=== PATIENT | female | born 1945 | race Caucasian/White ===

== ENCOUNTER 2020-03-30 06:45 | Emergency (ER) | payer MEDICARE, SELFPAY ==
[2020-03-30 06:47] VITALS: BP 156/78; PULSE 94; RESP 18; TEMP 36.6; O2SAT 98; BMI 19.5
--- NOTE | 2020-03-30 07:12 | W.ED.BACK ---
HPI - Back Pain/Injury General: Chief Complaint: Back Pain/Injury Stated Complaint: back pain Time Seen by Provider: 03/30/20 07:07 History of Present Illness: HPI Narrative: Patient is a 75-year-old female that comes to the ED with left mid back pain that is radiating up into her left shoulder. Symptoms started yesterday evening. Patient says she was just sitting when she felt the sharp pains in her back. She rates the pain a 10 out of 10. Patient denies any past heart history. She was not able to sleep last night and says she cannot get comfortable whether she is sitting down, laying down or standing. Denies fever, chills, nausea/vomiting, bladder or bowel symptoms. Associated symptoms: Deny abdominal pain, chills, dysuria, fatigue, fever(s), hematuria, nausea or vomiting Review of Systems Const: Denies: fever(s), chills or fatigue Eyes: Denies: change in vision or eye discomfort ENMT: Denies: throat pain, odynophagia, nasal discharge or nasal congestion Card: Denies: chest pain, palpitations, edema, swelling of feet/ankles, dyspnea on exertion or orthopnea Resp: Denies: dyspnea, productive cough or non-productive cough GI: Denies: abdominal pain, nausea, vomiting, diarrhea, constipation or hematochezia : Reports: flank pain (left); Denies: dysuria or hematuria Musc: Reports: back pain (left side mid back--pain radiates into left shoulder.); Denies: neck pain or extremity swelling Skin/Breast: Denies: rash or new lesions Neuro: Denies: headache(s), numbness in extremities or weakness in extremities Physical Exam Narrative: EXAM NARRATIVE: Patient is a pleasant healthy looking 75-year-old female that appears in some pain and is uncomfortable when I entered the room. During history and physical exam she was constantly moving or changing positions to get comfortable Const: COMMON NORMALS: patient oriented x3, healthy appearing and alert GENERAL APPEARANCE: cooperative HENMT: COMMON NORMALS: normocephalic HEAD & SCALP: normocephalic MOUTH: Normal oral and palatal mucosa present THROAT: posterior oropharynx normal and uvula midline Eye: COMMON NORMALS: Equal, round and reactive pupils present PUPIL: Yes Equal, round and reactive pupils present Neck/C-Spine: COMMON NORMALS: supple GENERAL: Yes normal visual inspection Resp: COMMON NORMALS: normal respiratory effort, No retractions, No use of accessory muscles and clear to auscultation bilaterally EFFORT & INSPECTION: Yes able to speak in complete sentences, No tachypneic, No respiratory distress and No labored AUSCULTATION: clear to auscultation bilaterally Cardio: COMMON NORMALS: regular rate, regular rhythm, S1 normal heart sound present, S2 normal heart sound present, No gallops present (Cardio), No clicks present (Cardio), No murmurs present (Cardio) and Peripheral pulses 2+ throughout RATE: regular rate RHYTHM: regular rhythm HEART SOUNDS: S1 normal heart sound present and S2 normal heart sound present PERIPHERAL PULSES: Peripheral pulses 2+ throughout GI: COMMON NORMALS: Normal to inspection, nondistended, normoactive bowel sounds present, Soft to palpation, non-tender and no masses PALPATION: Yes Soft to palpation : BLADDER/KIDNEY EXAM: Yes CVA tenderness on the left (moderate) Back/Pelvis: GENERAL BACK: Yes CVA tenderness THORACIC SPINE/UPPER BACK: Yes paraspinal muscle tenderness Thoracic paraspinal muscle tenderness: left Left thoracic paraspinal muscle tenderness: T5 and T6 Extremity: COMMON NORMALS: normal to inspection Neuro: COMMON NORMALS: patient oriented x3 and moves all extremities SENSORIUM/ORIENTATION: Yes alert Skin: COMMON NORMALS: no rashes or lesions noted GENERAL SKIN EXAM: no rashes or lesions noted and dry skin Course ED course: HEART SCORE- 2 Vital Signs: Vital signs: Vital Signs Temperature 97.9 F 03/30/20 06:47 Pulse Rate 75 03/30/20 10:40 Respiratory Rate 18 03/30/20 10:40 Blood Pressure 153/80 03/30/20 10:40 Pulse Oximetry 97 03/30/20 10:40 MDM - Back Pain/Injury MDM Narrative: Medical decision making narrative: Patient is a 75-year-old female comes to the ED with left side thoracic back pain that was radiated to left shoulder. Physical exam paraspinal muscle tenderness over the left-side of thoracic spine. EKG showed normal sinus rhythm with first-degree AV heart block, no ST segment elevation or depression seen. Troponin negative and HEART score-2. CBC, UA and CMP were unremarkable. CT of the abdomen to rule out kidney stones was performed and showed no acute findings and no obstructive kidney stones seen. Patient was diagnosed with thoracic back pain and given dose of Toradol and Norflex while here in the ED. Patient was discharged with Robaxin and told to follow-up with PCP in 7 to 10 days. Return to ED precautions given. Patient understood and agreed with plan. Lab Data: Attestation: I reviewed the patient's lab results. Labs: Lab Results 03/30/20 03/30/20 03/30/20 Range/Units 07:30 07:44 07:44 WBC 5.7 (4.0-10.0) 10^3/ uL RBC 5.15 (4.1-5.3) 10^6/u L Hgb 14.2 (11.5-15.3) g/dL Hct 45.3 (37.0-47.0) % MCV 88.0 (81-99) fL MCH 27.6 L (28.0-34.0) pg MCHC 31.3 (30.0-36.0) g/dL RDW 14.6 (12.1-15.1) % Plt Count 295 (130-400) 10^3/c mm MPV 9.8 (7.4-10.4) fL Neut % (Auto) 70.8 % Lymph % (Auto) 19.6 % [place] % (Auto) 4.9 % Eos % (Auto) 3.5 % Baso % (Auto) 1.0 % Neut # (Auto) 4.05 (1.8-7.7) 10^3/u L Lymph # (Auto) 1.1 (0.8-4.8) 10^3/u L [place] # (Auto) 0.3 (0.2-0.9) 10^3/u L Eos # (Auto) 0.2 (0.0-0.8) 10^3/u L Baso # (Auto) 0.1 (0.0-0.1) 10^3/u L Nucleated RBC % (a uto) 0 % Nucleated RBCs # 0.0 /100WBC Sodium Cancelled Potassium Cancelled Chloride Cancelled Carbon Dioxide Cancelled Anion Gap Cancelled BUN Cancelled Creatinine Cancelled GFR Calculation Cancelled Glucose Cancelled Calculated Osmolal ity Cancelled Calcium Cancelled Total Bilirubin Cancelled AST Cancelled ALT Cancelled Alkaline Phosphata se Cancelled Troponin T Baselin e NT-Pro-B Natriuret Pep Cancelled Total Protein Cancelled Albumin Cancelled Globulin Cancelled Urine Color Straw (Yellow) Urine Appearance Clear (CLEAR) Urine pH 7 (5-7) Ur Specific Gravit y 1.005 (1.005-1.030) Urine Protein Neg (Negative) Urine Glucose (UA) Norm (Normal) Urine Ketones Negative (Negative) Urine Blood Neg (Negative) Urine Nitrate Negative (Negative) Urine Bilirubin Neg (NEGATIVE) Urine Urobilinogen Norm (Negative) mg/dL Ur Leukocyte Ivelisse ase Negative (Negative) Urine RBC None (0-2) /hpf Urine WBC None (0-5) /hpf Ur Squamous Epith Cells None (0-5) Amorphous Sediment 1+ Urine Bacteria Trace (NONE) Urine Mucus Trace 03/30/20 03/30/20 03/30/20 Range/Units 07:44 08:24 08:24 WBC (4.0-10.0) 10^3/ uL RBC (4.1-5.3) 10^6/u L Hgb (11.5-15.3) g/dL Hct (37.0-47.0) % MCV (81-99) fL MCH (28.0-34.0) pg MCHC (30.0-36.0) g/dL RDW (12.1-15.1) % Plt Count (130-400) 10^3/c mm MPV (7.4-10.4) fL Neut % (Auto) % Lymph % (Auto) % [place] % (Auto) % Eos % (Auto) % Baso % (Auto) % Neut # (Auto) (1.8-7.7) 10^3/u L Lymph # (Auto) (0.8-4.8) 10^3/u L [place] # (Auto) (0.2-0.9) 10^3/u L Eos # (Auto) (0.0-0.8) 10^3/u L Baso # (Auto) (0.0-0.1) 10^3/u L Nucleated RBC % (a uto) % Nucleated RBCs # /100WBC Sodium 137 Potassium 4.2 Chloride 104 Carbon Dioxide 25 Anion Gap 12.2 BUN 13 Creatinine 0.8 GFR Calculation Not Reportable Glucose 114 Calculated Osmolal ity 281 L Calcium 9.5 Total Bilirubin 0.4 AST 26 ALT 15 Alkaline Phosphata se 78 Troponin T Baselin e Cancelled 12 H NT-Pro-B Natriuret Pep 236 Total Protein 7.4 Albumin 4.6 Globulin 2.8 Urine Color (Yellow) Urine Appearance (CLEAR) Urine pH (5-7) Ur Specific Gravit y (1.005-1.030) Urine Protein (Negative) Urine Glucose (UA) (Normal) Urine Ketones (Negative) Urine Blood (Negative) Urine Nitrate (Negative) Urine Bilirubin (NEGATIVE) Urine Urobilinogen (Negative) mg/dL Ur Leukocyte Ivelisse ase (Negative) Urine RBC (0-2) /hpf Urine WBC (0-5) /hpf Ur Squamous Epith Cells (0-5) Amorphous Sediment Urine Bacteria (NONE) Urine Mucus Imaging Data^: CXR: Attestation: I personally reviewed and interpreted this imaging study as follows: Radiologist's impression: [place] [address] XRay Report Signed Patient: Brigette Curry Unit #: [id number] : 1945 Age/Sex: 75 / F ADM Date: 03/30/20 Loc: ER Room/Bed: Attending Dr: Ordering Provider/Ordering MD: Victor Hugo Platt Date of Service: 03/30/20 Procedure(s): XR chest 1V portable [id number] Accession Number(s): [id number] Report Number: [id number] PROCEDURE INFORMATION: Exam: XR Chest, 1 View Exam date and time: 03/30/2020 8:19 AM Age: 75 years old Clinical indication: Back pain radiating into left shoulder TECHNIQUE: Imaging protocol: XR of the chest Views: 1 view. COMPARISON: CR Chest 2 views* [id number] 05/19/2018 7:35 PM FINDINGS: Lungs: The lungs are hyperinflated and hyperlucent compatible with COPD. No pneumonia or pulmonary edema. Pleural space: No pleural effusion or pneumothorax. Heart/Mediastinum: The cardiac silhouette is not enlarged. The mediastinal contours are normal. Bones/joints: No acute osseous abnormality. XR/XR chest 1V portable [id number] IMPRESSION: COPD. Dictated By: Favian Perry Signed By: Favian Perry Signed Date/Time: 03/30/20857 DD/ 6 CT Abd/Pel: Attestation: I personally reviewed and interpreted this imaging study as follows: Radiologist's impression: [facility] [address] [place] [address] CT Scan Report Signed Patient: Brigette Curry Unit #: [id number] : 1945 Age/Sex: 75 / F ADM Date: 03/30/20 Loc: ER Room/Bed: Attending Dr: Ordering Provider/Ordering MD: Victor Hugo Platt Date of Service: 03/30/20 Procedure(s): CT kidney stone [id number] Accession Number(s): [id number] Report Number: [id number] WS: [id number] CT ABDOMEN PELVIS TECHNIQUE: Noncontrast CT of the abdomen and pelvis with coronal and sagittal reformatted images. CLINICAL INFORMATION: Left flank pain and Left CVA tenderness COMPARISON: None. DLP: 509.[address] scans at [facility] use at least one of these dose optimization techniques: automated exposure control; mA and/or kV adjustment per patient size (includes targeted exams where dose is matched to clinical indication); or iterative reconstruction. FINDINGS: No left hydronephrosis. No obstructing left renal parenchymal or ureteral calculi. No obstructing right renal parenchymal or ureteral calculi. Pelvic phleboliths. Noncontrast liver is normal. Noncontrast spleen is normal. Lung bases are well aerated. Left adrenal adenoma measuring 1.8 cm. Right adrenal Gland is normal. Fatty atrophy of the pancreas. Normal caliber abdominal aorta. Tiny amount of free fluid in the pelvis. Sigmoid diverticulosis. No evidence of acute diverticulitis. No periaortic or inguinal lymphadenopathy. Normal lumbar spine. CT/CT kidney stone [id number] IMPRESSION: 1. No obstructing renal or ureteral calculi. No hydronephrosis. 2. 1.8 cm left adrenal adenoma. 3. Tiny amount of free fluid in the pelvis. 4. Sigmoid diverticulosis. No acute diverticulitis Dictated By: Erich Banegas MD Signed By: Erich Banegas MD Signed Date/Time: 03/30/20900 DD/ 0854 EKG Data^: EKG 1: Attestation: I personally reviewed and interpreted this EKG as follows: EKG interpretation date: 03/30/20 Interpretation: Sinus rhythm with first-degree AV heart block, 77 bpm, no ST segment elevation or depression seen. Discharge Plan Discharge Patient Disposition: Home Clinical Impression: Thoracic back pain Qualifiers: Chronicity: acute Back pain laterality: left Qualified Code(s): M54.6 - Pain in thoracic spine Condition: Stable Prescriptions: New Robaxin-750 750 mg tablet 750 mg PO Q8H Qty: 15 RF: 0 No Action multivitamin Tablet 1 tab PO DAILY RF: 0 aspirin 81 mg Tablet,Chewable 81 mg PO DAILY RF: 0 Discharge Orders: Discharge Order (Routine); Ordered 03/30/20 Ordered By: Victor Hugo Platt Referrals: Rory Marinelli DO [Primary Care Provider] - Discharge Diet: Regular Discharge Activity: Increase activity as tolerated Patient Instructions: Back Pain (ED) Activity Restrictions/Additional Instructions: Follow-up with medical provider as directed in 7-19 days. Take medications as prescribed. I am sending you home with a prescription for Robaxin which is a muscle relaxer. Please take dose at night before bed because it can cause some drowsiness. If you decide to take it during the day use with caution due to possible drowsy side effect. Take [id number] ibuprofen or Tylenol to help with pain. Apply cold pack and/or heat on back to help with symptoms as well. Return to the ER or your medical provider if condition worsens. Please read and understand discharge instructions. If any questions, please ask. Discharge Date/Time: 03/30/20 10:40 Coding Level of Care Code ED Options Trader for Chg Fwd Exam Comprehensive
--- NOTE | 2020-03-30 07:20 | ECG_ITS ---
[facility] Test Date: 2020-03-30 Pat Name: Brigette Curry Department: Room: Gender: Female [employer]: : 1945 Requested By: Victor Hugo Platt Order Number: [id number] Sen MD: Mackenzie Butterfield M.D. Measurements Intervals [place] Rate: 77 P: 82 ND: 221 QRS: -14 QRSD: 89 T: 63 QT: 366 QTc: 414 Interpretive Statements SINUS RHYTHM WITH FIRST DEGREE AV BLOCK POSSIBLE RIGHT ATRIAL ENLARGEMENT [0.25mV P WAVE] LEFT ATRIAL ENLARGEMENT [-0.15mV P WAVE IN V1/V2] POSSIBLE RIGHT VENTRICULAR CONDUCTION DELAY [RSR (QR) IN V1/V2] POSSIBLE LEFT VENTRICULAR HYPERTROPHY [VOLTAGE CRITERIA PLUS LAE OR QRS WIDENING] Compared to ECG 05/19/2018 19:24:17 No significant changes Electronically Signed On 03-30-2020 15:46:57 CDT by Mackenzie Butterfield M.D. [email or web address]
--- NOTE | 2020-03-30 07:24 | XRR_ITS ---
PROCEDURE INFORMATION: Exam: XR Chest, 1 View Exam date and time: 03/30/2020 8:19 AM Age: 75 years old Clinical indication: Back pain radiating into left shoulder TECHNIQUE: Imaging protocol: XR of the chest Views: 1 view. COMPARISON: CR Chest 2 views* [id number] 05/19/2018 7:35 PM FINDINGS: Lungs: The lungs are hyperinflated and hyperlucent compatible with COPD. No pneumonia or pulmonary edema. Pleural space: No pleural effusion or pneumothorax. Heart/Mediastinum: The cardiac silhouette is not enlarged. The mediastinal contours are normal. Bones/joints: No acute osseous abnormality. XR/XR chest 1V portable [id number] IMPRESSION: COPD.
[2020-03-30 07:48] VITALS: RESP 14; O2SAT 94
[2020-03-30] MEDS: ondansetron 2 mg/ML SDV 2 mL 4 MG IVP (07:48)
[2020-03-30] MEDS: morphine 4 mg/mL SDV 1 mL IVP (07:48)
[2020-03-30 07:53] VITALS: BP 113/60; PULSE 102; RESP 18; O2SAT 97
[2020-03-30 07:56] LABS: Basophils # 0.1 10^3/uL (0.0-0.1); Eosinophils # 0.2 10^3/uL (0.0-0.8); Eosinophils % 3.5 %; Hematocrit 45.3 % (37.0-47.0); Hemoglobin 14.2 g/dL (11.5-15.3); Lymphocytes # 1.1 10^3/uL (0.8-4.8); Lymphocytes % 19.6 %; Mean Corpuscular HGB Conc 31.3 g/dL (30.0-36.0); Mean Corpuscular Hemoglobin 27.6 pg (28.0-34.0); Mean Platelet Volume 9.8 fL (7.4-10.4); Monocytes # 0.3 10^3/uL (0.2-0.9); Monocytes % 4.9 %; Neutrophils # 4.05 10^3/uL (1.8-7.7); Neutrophils % 70.8 %; Nucleated Red Blood Cells % 0 %; Platelet Count 295 10^3/cmm (130-400); Red Blood Count 5.15 10^6/uL (4.1-5.3); Red Cell Distribution Width 14.6 % (12.1-15.1); White Blood Count 5.7 10^3/uL (4.0-10.0)
[2020-03-30 08:00] VITALS: BP 154/76; PULSE 73; RESP 13; O2SAT 98
--- NOTE | 2020-03-30 08:17 | CT_ITS ---
WS: [id number] CT ABDOMEN PELVIS TECHNIQUE: Noncontrast CT of the abdomen and pelvis with coronal and sagittal reformatted images. CLINICAL INFORMATION: Left flank pain and Left CVA tenderness COMPARISON: None. DLP: 509.[address] scans at [facility] use at least one of these dose optimization techniques: automat ed exposure control; mA and/or kV adjustment per patient size (includes targeted exams where dose is matched to clinical indication); or iterative reconstruction. FINDINGS: No left hydronephrosis. No obstructing left renal parenchymal or ureteral calculi. No obstructing rig ht renal parenchymal or ureteral calculi. Pelvic phleboliths. Noncontrast liver is normal. Noncontrast spleen is normal. Lung bases are well aerated. Left adrenal adenoma measuring 1.8 cm. Right adrenal Gland is normal. Fatty atrophy of the pancreas. Normal calibe r abdominal aorta. Tiny amount of free fluid in the pelvis. Sigmoid diverticulosis. No evidence of acute diverticulitis. No periaortic or inguinal lymphadenopathy. Normal lumbar spine. CT/CT kidney stone [id number] IMPRESSION: 1. No obstructing renal or ureteral calculi. No hydronephrosis. 2. 1.8 cm left adrenal adenoma. 3. Tiny amount of free fluid in the pelvis. 4. Sigmoid diverticulosis. No acute diverticulitis
[2020-03-30 08:20] LABS: Add Urine Culture? No; Amorphous Sediment Urine 1+; Bacteria Urine TRACE; Bilirubin Urine Neg (NEGATIVE); Blood Urine Neg (Negative); Glucose Urine UA Norm (Normal); Ketones Urine Negative (Negative); Leukocyte Esterase Urine Negative (Negative); Mucus Urine TRACE; Nitrate Urine Negative (Negative); Protein Urine Neg (Negative); Specific Gravity, Urine 1.005 (1.005-1.030); Urine Appearance Clear (CLEAR); Urine Color Straw (Yellow); Urobilinogen Urine Norm (Negative); pH Urine 7 (5-7)
[2020-03-30] MEDS: sodium chloride 0.9% 500 ML IV (08:20)
[2020-03-30 08:49] LABS: Troponin(5th) Baseline 12 ng/L (0-10)
--- NOTE | 2020-03-30 08:52 | PC.NURSE ---
This RN reviewed assessment and agree with the chart.
[2020-03-30 08:57] LABS: Alanine Aminotransferase 15 U/L (0-33); Albumin Level 4.6 g/dL (3.5-5.2); Alkaline Phosphatase 78 IU/L (35-105); Anion Gap 12.2 (5-19); Aspartate Amino Transferase 26 U/L (0-32); Blood Urea Nitrogen 13 mg/dL (8-23); Calcium 9.5 mg/dL (8.5-10.5); Carbon Dioxide 25 mmol/L (22-29); Chloride 104 mmol/L (98-107); Globulin 2.8 g/dL (1.3-4.6); Glucose 114 mg/dL (65-115); NT Pro B Type Natriuretic Pept 236 pg/mL (0-450); Osmolality Calculated 281 mOsm/kg (285-295); Potassium 4.2 mmol/L (3.5-5.1); Sodium 137 mmol/L (136-145); Total Bilirubin 0.4 mg/dL (0.15-1.2); Total Protein 7.4 g/dL (6.6-8.7)
[2020-03-30 09:00] VITALS: BP 135/76; PULSE 71; RESP 15; O2SAT 98
[2020-03-30] MEDS: orphenadrine 30 mg/mL Inj 2 mL 60 MG IVP (09:42)
[2020-03-30] MEDS: ketorolac 30 mg/mL INJ IVP (09:42)
[2020-03-30] MEDS: diphenhydrAMINE 50 mg/mL SDV 1mL IVP (09:59)
[2020-03-30 10:40] VITALS: BP 153/80; PULSE 75; RESP 18; O2SAT 97
== END 2020-03-30 10:40 | disposition home or self-care (01) ==
PROVIDERS: Emergency Provider Physician Assistant; PCP Internal Medicine
DX: M54.6 Pain in thoracic spine (principal); Z79.82 Long term (current) use of aspirin
CPT/HCPCS: 12345; 36415; 71045; 74176; 80053; 81001; 83880; 84484; 85025; 87040; 93005; 96361; 96374; 96375; 99284; J1200; J1885; J2270; J2360; J2405; J7040

== ENCOUNTER 2024-05-05 11:45 | Emergency (ER) | payer MEDICARE, SELFPAY ==
[2024-05-05 11:53] VITALS: BP 161/79; PULSE 91; RESP 16; TEMP 36.4; O2SAT 97; BMI 17.9
--- NOTE | 2024-05-05 13:35 | XRR_ITS ---
PROCEDURE INFORMATION: Exam: XR Thoracic Spine Exam date and time: 05/05/2024 1:57 PM Age: 79 years old Clinical indication: Pain in thoracic spine; Additional info: Back pain TECHNIQUE: Imaging protocol: Radiologic exam of the thoracic spine. Views: 3 views. COMPARISON: CR XR thoracic spine 3V* [id number] 04/14/2020 10:09 AM FINDINGS: Bones/joints: Alignment within normal limits. Minimal degenerative changes of the spine. No fracture evident. Soft tissues: Unremarkable. XR/XR thoracic spine 3V* [id number] IMPRESSION: Minimal degenerative change with no acute pathology.
--- NOTE | 2024-05-05 13:36 | XRR_ITS ---
PROCEDURE INFORMATION: Exam: XR Lumbosacral Spine Exam date and time: 05/05/2024 2:01 PM Age: 79 years old Clinical indication: Low back pain TECHNIQUE: Imaging protocol: Radiologic exam of the lumbosacral spine. Views: 2 or 3 views. COMPARISON: CT kidney stone [id number] 03/30/2020 8:25 AM FINDINGS: Bones/joints: Minimal levocurvature. Osteopenia. Minimal anterolisthesis of L4 on L5. Features of minimal degenerative disc disease. Mild degenerative changes lower lumbar spine facet joints. Soft tissues: Vascular calcifications noted in the soft tissues. Gastrointestinal tract: Large amount of colonic stool. XR/XR lumbar spine 2-3V* [id number] IMPRESSION: No acute pathology. Mild levocurvature and minimal degenerative change.
[2024-05-05] MEDS: ketorolac 30 mg/mL INJ 15 MG IM (13:44)
[2024-05-05] MEDS: orphenadrine 30 mg/mL Inj 2 mL IM (13:45)
--- NOTE | 2024-05-05 13:51 | W.ED.BACK ---
HPI - Back Pain/Injury General: Chief Complaint: Back Pain/Injury Stated Complaint: severe upper back pain Time Seen by Provider: 05/05/24 13:21 History of Present Illness: 79-year-old female comes in today with increased back pain and discomfort. Patient reports that she has chronic back pain that she takes tramadol for. Patient reports that she has had prior complaints of pain in the past but has had worsening symptoms over the last 3 days. Patient has taken her tramadol with no relief. Patient appears nontoxic. Related Data Home Medications Medication Instructions Recorded Confirmed aspirin 81 mg chewable tablet 81 mg PO DAILY 03/30/20 03/30/20 multivitamin 1 tab PO DAILY 03/30/20 03/30/20 Previous Rx's Medication Instructions Recorded baclofen 5 mg tablet 5 mg PO TID PRN muscle spasm #20 05/05/24 tabs celecoxib 100 mg capsule 100 mg PO BID #20 caps 05/05/24 Allergies Allergy/AdvReac Type Severity Reaction Status Date / Time No Known Allergies Allergy Verified 03/30/20 06:54 Review of Systems Musc: Reports: back pain Physical Exam Const: COMMON NORMALS: alert HENMT: COMMON NORMALS: normocephalic HEAD & SCALP: normocephalic MOUTH: Normal oral and palatal mucosa present Neck/C-Spine: COMMON NORMALS: full ROM Resp: COMMON NORMALS: normal respiratory effort Cardio: COMMON NORMALS: regular rate RATE: regular rate GI: COMMON NORMALS: non-tender : COMMON NORMALS: Yes no CVA tenderness BLADDER/KIDNEY EXAM: Yes no CVA tenderness Back/Pelvis: COMMON NORMALS: no CVA tenderness THORACIC SPINE/UPPER BACK: No thoracic spinal tenderness and Yes paraspinal muscle tenderness Thoracic paraspinal muscle tenderness: left LUMBAR SPINE/LOWER BACK: No lumbar spinal tenderness and Yes paraspinal muscle tenderness Lumbar paraspinal muscle tenderness: left Extremity: COMMON NORMALS: normal to inspection Neuro: SENSORIUM/ORIENTATION: Yes alert Skin: COMMON NORMALS: turgor normal GENERAL SKIN EXAM: turgor normal Course Vital Signs: Vital signs: Vital Signs Temperature 97.6 F 05/05/24 11:53 Pulse Rate 91 05/05/24 11:53 Respiratory Rate 16 05/05/24 11:53 Blood Pressure 161/79 05/05/24 11:53 Pulse Oximetry 97 05/05/24 11:53 Oxygen Delivery Me thod Room Air 05/05/24 11:53 MDM - Back Pain/Injury Medical Decision Making 79-year-old female comes in today for complaints of left upper back pain. Patient reports a previous history of similar back pain and discomfort. Patient was concerned that she may be having a stroke. Patient denies any difficulty walking or any weakness in the extremity. Patient denies any problems speaking or complaints of a headache or dizziness. No focal neurodeficits are noted. Vital signs are normal except for some mild elevation of blood pressure. Patient has some tenderness of the left paraspinous muscles and infrascapular area of the mid to upper back. Lungs are clear to auscultation. Differential diagnosis includes but not limited to ACS, gallbladder disease, pancreatitis, anxiety about health, intervertebral disc disease, facet arthropathy, muscle strain. EKG was unremarkable. CBC was normal. Urinalysis was unremarkable. CMP was unremarkable. Troponin was 14. Most likely pain is related to patient's chronic facet arthritis in the back. X-rays of the thoracic and lumbar spine noted no acute abnormalities and only degenerative changes. Patient and family both reported understanding of care plan need for follow-up or return to the ER. Labs 05/05/24 14:23 05/05/24 14:23 Radiology Impressions Thoracic Spine X-Ray 05/05/24 13:35 IMPRESSION: Minimal degenerative change with no acute pathology. Lumbar Spine X-Ray 05/05/24 13:36 IMPRESSION: No acute pathology. Mild levocurvature and minimal degenerative change. Laboratory Results WBC 6.44 10^3/uL (3.29-11.43) 05/05/24 14: RBC 4.92 10^6/uL (3.85-5.65) 05/05/24 14:23 Hgb 13.90 g/dL (11.27-16.99) 05/05/24 14:23 Hct 44.8 % (36-47) 05/05/24 14:23 MCV 91.1 fl (85-98) 05/05/24 14:23 MCH 28.3 pg (27-33) 05/05/24 14: MCHC 31.0 g/dL (30-55) 05/05/24 14:23 RDW 14.6 % (12.1-15.1) 05/05/24 14:23 Plt Count 246 10^3/cmm (157-399) 05/05/24 14:23 MPV 9.0 fL (7.4-10.4) 05/05/24 14:23 Neut % (Auto) 75.8 % 05/05/24 14:23 Lymph % (Auto) 16.1 % 05/05/24 14:23 [place] % (Auto) 6.2 % 05/05/24 14:23 Eos % (Auto) 1.1 % 05/05/24 14:23 Baso % (Auto) 0.6 % 05/05/24 14:23 Neut # (Auto) 4.88 10^3/uL (1.8-7.7) 05/05/24 14:23 Lymph # (Auto) 1.0 10^3/uL (0.8-4.8) 05/05/24 14:23 Valencia # (Auto) 0.4 10^3/uL (0.2-0.9) 05/05/24 14:23 Eos # (Auto) 0.1 10^3/uL (0.0-0.8) 05/05/24 14:23 Baso # (Auto) 0.0 10^3/uL (0.0-0.1) 05/05/24 14:23 Nucleated RBC % (auto) 0 % 05/05/24 14: Nucleated RBCs # 0.0 /100WBC 05/05/24 14:23 Sodium 139 mmol/L (136-145) 05/05/24 14:23 Potassium 3.8 mmol/L (3.5-5.1) 05/05/24 14:23 Chloride 101 mmol/L (98-107) 05/05/24 14:23 Carbon Dioxide 25 mmol/L (22-29) 05/05/24 14:23 Anion Gap 16.8 (5-19) 05/05/24 14:23 BUN 9 mg/dL (8-23) 05/05/24 14:23 Creatinine 0.7 mg/dL (0.5-0.9) 05/05/24 14:23 GFR Calculation Not Reportable 05/05/24 14:23 Glucose 102 mg/dL (65-115) 05/05/24 14:23 Calculated Osmolality 287 mOsm/kg (285-295) 05/05/24 14:23 Calcium 9.2 mg/dL (8.5-10.5) 05/05/24 14:23 Total Bilirubin 0.5 mg/dL (0.15-1.2) 05/05/24 14:23 AST 27 U/L (0-32) 05/05/24 14:23 ALT 19 U/L (0-33) 05/05/24 14:23 Alkaline Phosphatase 90 U/L (35-105) 05/05/24 14:23 Troponin T Baseline 14 ng/L (0-10) H 05/05/24 14:23 Total Protein 8.0 g/dL (6.6-8.7) 05/05/24 14:23 Albumin 4.7 g/dL (3.5-5.2) 05/05/24 14:23 Globulin 3.3 g/dL (1.3-4.6) 05/05/24 14:23 Lipase 16 U/L (13-60) 05/05/24 14:23 Urine Color Yellow (Yellow) 05/05/24 14:07 Urine Appearance Clear (CLEAR) 05/05/24 14:07 Urine pH 7 (5-7) 05/05/24 14:07 Ur Specific [place] 1.010 (1.005-1.030) 05/05/24 14:07 Urine Protein Neg (Negative) 05/05/24 14:07 Urine Glucose (UA) Norm (Normal) 05/05/24 14:07 Urine Ketones Negative (Negative) 05/05/24 14:07 Urine Blood 2+ (Negative) H 05/05/24 14:07 Urine Nitrate Negative (Negative) 05/05/24 14:07 Urine Bilirubin Neg (Negative) 05/05/24 14:07 Urine Urobilinogen Norm mg/dL (Negative) 05/05/24 14:07 Ur Leukocyte Esterase Negative (Negative) 05/05/24 14:07 Urine RBC 5-10 /hpf (0-2) H 05/05/24 14:07 Urine WBC None /hpf (0-5) 05/05/24 14:07 Ur Squamous Epith Cells None /hpf (0-5) 05/05/24 14:07 Amorphous Sediment Not Reportable 05/05/24 14:07 Urine Bacteria None /hpf (NONE) 05/05/24 14:07 All radiology interpretation(s) finalized by discharge EKG Data EKG 1: I personally reviewed and interpreted this EKG as follows: EKG interpretation date: 05/05/24 EKG interpretation time: 14:35 Prior EKG tracings: not available for review Interpretation: EKG shows a sinus rhythm with a regular rate at [address] elevation or ectopy is noted. No prior exam was available for comparison. Patient has some mild artifact on the EKG. Dr. Matamoros reviewed the EKG prior to my visualization. Computer generated interpretation: Sinus rhythm with first-degree AV block. Right atrial enlargement. Possible right ventricular conduction delay. Abnormal EKG. Unconfirmed report. 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 [Family Provider] - Rory Marinelli DO [Primary Care Provider] - Discharge Diet: Usual diet Discharge Activity: Increase activity as tolerated Patient Instructions: Back Pain (ED) Activity Restrictions/Additional Instructions: Activity as tolerated. Gentle stretching and range of motion exercises. Drink plenty of water with medications. Follow-up with primary care for further instructions. Return to ED for new concerns. Coding Level of Care Code ED Assembler Finger Buffs for Chg Caren
--- NOTE | 2024-05-05 13:52 | ECG_ITS ---
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 Measurements Intervals [place] Rate: 83 P: 88 GA: 221 QRS: 17 QRSD: 92 T: 80 QT: 364 QTc: 429 Interpretive Statements SINUS RHYTHM WITH FIRST DEGREE AV BLOCK RIGHT ATRIAL ENLARGEMENT [0.3mV P-WAVE] POSSIBLE RIGHT VENTRICULAR CONDUCTION DELAY [RSR (QR) IN V1/V2] Compared to ECG 03/30/2020 07:37:02 No significant changes Electronically Signed On 05-05-2024 17:43:43 CDT by Sohan Rush M.D. [id number]
[2024-05-05 14:27] LABS: Add Urine Culture? No; Add Urine Microscopic? YES; Bilirubin Urine Neg (Negative); Blood Urine 2+ (Negative); Glucose Urine UA Norm (Normal); Ketones Urine Negative (Negative); Leukocyte Esterase Urine Negative (Negative); Nitrate Urine Negative (Negative); Protein Urine Neg (Negative); Urine Appearance Clear (CLEAR); Urine Color Yellow (Yellow); Urobilinogen Urine Norm (Negative); pH Urine 7 (5-7)
[2024-05-05 14:31] LABS: Basophils % 0.6 %; Eosinophils # 0.1 10^3/uL (0.0-0.8); Eosinophils % 1.1 %; Hematocrit 44.8 % (36-47); Lymphocytes % 16.1 %; Mean Corpuscular Hemoglobin 28.3 pg (27-33); Mean Corpuscular Volume 91.1 fl (85-98); Monocytes # 0.4 10^3/uL (0.2-0.9); Monocytes % 6.2 %; Neutrophils # 4.88 10^3/uL (1.8-7.7); Neutrophils % 75.8 %; Nucleated Red Blood Cells % 0 %; Platelet Count 246 10^3/cmm (157-399); Red Blood Count 4.92 10^6/uL (3.85-5.65); Red Cell Distribution Width 14.6 % (12.1-15.1); White Blood Count 6.44 10^3/uL (3.29-11.43)
[2024-05-05 14:55] LABS: Alanine Aminotransferase 19 U/L (0-33); Albumin Level 4.7 g/dL (3.5-5.2); Alkaline Phosphatase 90 U/L (35-105); Anion Gap 16.8 (5-19); Aspartate Amino Transferase 27 U/L (0-32); Blood Urea Nitrogen 9 mg/dL (8-23); Calcium 9.2 mg/dL (8.5-10.5); Carbon Dioxide 25 mmol/L (22-29); Chloride 101 mmol/L (98-107); Creatinine Clr Calc Pharmacy 43.3286; Globulin 3.3 g/dL (1.3-4.6); Glucose 102 mg/dL (65-115); Lipase 16 U/L (13-60); Osmolality Calculated 287 mOsm/kg (285-295); Potassium 3.8 mmol/L (3.5-5.1); Sodium 139 mmol/L (136-145); Total Bilirubin 0.5 mg/dL (0.15-1.2); Troponin(5th) Baseline 14 ng/L (0-10)
[2024-05-05 15:50] VITALS: BP 154/76; PULSE 84; RESP 16; O2SAT 97
== END 2024-05-05 15:47 | disposition home or self-care (01) ==
PROVIDERS: Emergency Provider Nurse Practitioner Family; PCP Internal Medicine
DX: M47.814 Spondylosis without myelopathy or radiculopathy, thoracic region (principal); I44.0 Atrioventricular block, first degree; Z79.82 Long term (current) use of aspirin
CPT/HCPCS: 36415; 72072; 72100; 80053; 81001; 83690; 84484; 85025; 93005; 96372; 99285; J1885; J2360

== ENCOUNTER 2024-12-15 17:01 | Emergency (ER) | payer MEDICARE, SELFPAY ==
[2024-12-15] VITALS (17 sets, daily range): BP systolic 143–222; BP diastolic 74–112; PULSE 68–84; RESP 13–27; TEMP 36.1; O2SAT 96–99; BMI 19.5
--- NOTE | 2024-12-15 17:08 | XRR_ITS ---
PROCEDURE INFORMATION: Exam: XR Chest Exam date and time: 12/15/2024 5:12 PM Age: 79 years old Clinical indication: Injury or trauma; Fall; Blunt trauma (contusions or hematomas) TECHNIQUE: Imaging protocol: Radiologic exam of the chest. Views: 1 view. COMPARISON: CR XR chest 1V portable [id number] 03/30/2020 8:09 AM FINDINGS: Lungs: Biapical scarring. No consolidation. Pleural spaces: Unremarkable. No pleural effusion. No pneumothorax. Heart/Mediastinum: Unremarkable. No cardiomegaly. Bones/joints: Unremarkable. XR/XR chest 1V portable [id number] IMPRESSION: No acute findings.
--- NOTE | 2024-12-15 17:08 | CTR_ITS ---
PROCEDURE INFORMATION: Exam: CT Head Without Contrast Exam date and time: 12/15/2024 5:17 PM Age: 79 years old Clinical indication: Injury or trauma; Blunt trauma (contusions or hematomas); Injury details: Patient presents with injury after fall. Patient complaining of right rib pain and head pain. Patient fell down stairs. Patient denies blood thinner use. Patient is unsure if she had positive loc. Patent airway, unlabored respirations, and appropriate color. TECHNIQUE: Imaging protocol: Computed tomography of the head without contrast. Radiation optimization: All CT scans at this facility use at least one of these dose optimization techniques: automated exposure control; mA and/or kV adjustment per patient size (includes targeted exams where dose is matched to clinical indication); or iterative reconstruction. COMPARISON: CT cervical spin wo con* [id number] 12/15/2024 5:17 PM RADIATION DOSE METRICS: Total DLP (mGy-cm): 1069.3 FINDINGS: Brain: No hemorrhage. No edema. Moderate diffuse cerebral atrophy and sequela of chronic small vessel ischemic disease. No mass effect. Cerebral ventricles: No ventriculomegaly. Paranasal sinuses: Visualized sinuses are unremarkable. No fluid levels. Mastoid air cells: Visualized mastoid air cells are well aerated. Bones: Unremarkable. No acute fracture. Soft tissues: Right posterior scalp contusion. CT/CT head wo con* [id number] IMPRESSION: No acute intracranial abnormality.
--- NOTE | 2024-12-15 17:08 | CTR_ITS ---
PROCEDURE INFORMATION: Exam: CT Chest With Contrast; Diagnostic Exam date and time: 12/15/2024 5:26 PM Age: 79 years old Clinical indication: Injury or trauma; Generalized; Blunt trauma (contusions or hematomas); Fall walkiing down garage steps. Focal C/O RT rib pain. TECHNIQUE: Imaging protocol: Diagnostic computed tomography of the chest with contrast. Radiation optimization: All CT scans at this facility use at least one of these dose optimization techniques: automated exposure control; mA and/or kV adjustment per patient size (includes targeted exams where dose is matched to clinical indication); or iterative reconstruction. Contrast material: OMNI 350; Contrast volume: 100 ml; Contrast route: INTRAVENOUS (IV); COMPARISON: CR (CHEST, ) 12/15/2024 5:12 PM RADIATION DOSE METRICS: Total DLP (mGy-cm): 570.27 FINDINGS: Lungs: Biapical scarring. No consolidation. No masses. Pleural spaces: Unremarkable. No pneumothorax. No pleural effusion. Heart: Unremarkable. No cardiomegaly. No pericardial effusion. Lymph nodes: Unremarkable. No enlarged lymph nodes. Vasculature: Unremarkable. No aortic aneurysm. Bones/joints: Unremarkable. No acute fracture. Soft tissues: Unremarkable. PROCEDURE INFORMATION: Exam: CT Abdomen And Pelvis With Contrast Exam date and time: 12/15/2024 5:26 PM Age: 79 years old Clinical indication: Injury or trauma; Generalized; Blunt trauma (contusions or hematomas); Fall walkiing down garage steps. Focal C/O RT rib pain. TECHNIQUE: Imaging protocol: Computed tomography of the abdomen and pelvis with contrast. Radiation optimization: All CT scans at this facility use at least one of these dose optimization techniques: automated exposure control; mA and/or kV adjustment per patient size (includes targeted exams where dose is matched to clinical indication); or iterative reconstruction. Contrast material: OMNI 350; Contrast volume: 100 ml; Contrast route: INTRAVENOUS (IV); COMPARISON: CT kidney stone [id number] 03/30/2020 8:25 AM RADIATION DOSE METRICS: Total DLP (mGy-cm): 570.27 FINDINGS: Liver: Normal. No mass. Gallbladder and biliary ducts: Normal. No calcified stones. No ductal dilation. Pancreas: Normal. No ductal dilation. Spleen: Normal. No splenomegaly. Adrenal glands: Normal. No mass. Kidneys and ureters: Normal. No hydronephrosis. Stomach and bowel: Unremarkable. No obstruction. No mucosal thickening. Appendix: No evidence of appendicitis. Intraperitoneal space: Unremarkable. No free air. No significant fluid collection. Vasculature: Unremarkable. No abdominal aortic aneurysm. Lymph nodes: Unremarkable. No enlarged lymph nodes. Urinary bladder: Unremarkable as visualized. Reproductive: Unremarkable as visualized. Bones/joints: No acute fracture. Soft tissues: Unremarkable. CT/CT chest abdpel w/*[id number] IMPRESSION: No acute traumatic intrathoracic findings. IMPRESSION: No acute traumatic intra-abdominal findings.
--- NOTE | 2024-12-15 17:08 | CTR_ITS ---
PROCEDURE INFORMATION: Exam: CT Cervical Spine Without Contrast Exam date and time: 12/15/2024 5:17 PM Age: 79 years old Clinical indication: Injury or trauma; Fall; Blunt trauma; Patient fell walking down garage steps. C/O neck pain. TECHNIQUE: Imaging protocol: Computed tomography of the cervical spine without contrast. Radiation optimization: All CT scans at this facility use at least one of these dose optimization techniques: automated exposure control; mA and/or kV adjustment per patient size (includes targeted exams where dose is matched to clinical indication); or iterative reconstruction. COMPARISON: CR (CHEST, ) 12/15/2024 5:12 PM RADIATION DOSE METRICS: Total DLP (mGy-cm): 148.6 FINDINGS: Bones: No acute fracture. Normal alignment. No significant disc bulge or herniation. No severe spinal canal stenosis. No significant neural foraminal narrowing. Lungs: Biapical scarring. Soft tissues: Unremarkable. CT/CT cervical spin wo con* [id number] IMPRESSION: No acute findings.
--- NOTE | 2024-12-15 17:09 | W.ED.FALL ---
Documented by User: Sadi Ibrahim MD 12/15/24 17:11 HPI - Fall General: Chief Complaint: Fall Stated Complaint: head pain s/p fall Time Seen by Provider: 12/15/24 17:05 Source: patient and EMS Mode of arrival: EMS Limitations: no limitations History of Present Illness: 79-year-old female states that she fell down her steps in her garage. She states that she did strike her head is having head pain also neck pain and right sided chest pain and slight abdominal pain. States her pains are worse in her right ribs rates that pain an 8 out of 10 no LOC has a extremely small laceration to right parietal Associated symptoms-after fall: Reports abdominal pain, chest pain and neck pain; Denies headache(s) Related Data Home Medications ?Medication ?Instructions ?Recorded ?Confirmed aspirin 81 mg chewable tablet 81 mg PO DAILY 03/30/20 03/30/20 multivitamin 1 tab PO DAILY 03/30/20 03/30/20 Previous Rx's ?Medication ?Instructions ?Recorded baclofen 5 mg tablet 5 mg PO TID PRN muscle spasm #20 05/05/24 tabs celecoxib 100 mg capsule 100 mg PO BID #20 caps 05/05/24 hydrocodone 5 mg-acetaminophen 325 1 tab PO Q8H PRN pain #7 tabs 12/15/24 mg tablet Allergies Allergy/AdvReac Type Severity Reaction Status Date / Time No Known Allergies Allergy Verified 03/30/20 06:54 Review of Systems Const: Denies: fever(s), chills, body aches or change in appetite Eyes: Denies: blurry vision or eye discomfort ENMT: Denies: throat pain or dental pain Card: Reports: chest pain Resp: Denies: dyspnea GI: Reports: abdominal pain; Denies: nausea, vomiting or diarrhea Musc: Reports: neck pain; Denies: back pain Skin/Breast: Denies: rash Neuro: Denies: headache(s) Physical Exam Const: COMMON NORMALS: no acute distress, patient oriented x3 and healthy appearing HENMT: COMMON NORMALS: normocephalic HEAD & SCALP: normocephalic OTHER: Small less than 1 cm laceration right parietal region at superficial Eye: COMMON NORMALS: Equal, round and reactive pupils present and EOMs intact bilaterally PUPIL: Yes Equal, round and reactive pupils present Neck/C-Spine: OTHER: Pain along cervical spine was not in a c-collar will place in a c-collar here Chest: COMMONS NORMALS: normal inspection of the chest OTHER: Tenderness over right side of the chest Resp: COMMON NORMALS: normal respiratory effort, No retractions, No use of accessory muscles and clear to auscultation bilaterally AUSCULTATION: clear to auscultation bilaterally Cardio: COMMON NORMALS: regular rate, regular rhythm and No murmurs present (Cardio) RATE: regular rate RHYTHM: regular rhythm GI: COMMON NORMALS: Normal to inspection, nondistended, normoactive bowel sounds present, Soft to palpation and no masses PALPATION: Yes Soft to palpation OTHER: Mild right upper quadrant however Extremity: COMMON NORMALS: normal to inspection and full ROM Neuro: COMMON NORMALS: patient oriented x3, moves all extremities and no focal motor deficits Psych: COMMON NORMALS: mental status grossly normal, Normal thought process present and cooperative THOUGHT PROCESS: Normal thought process present Skin: COMMON NORMALS: no rashes or lesions noted and no wounds GENERAL SKIN EXAM: no rashes or lesions noted Course Vital Signs: Vital signs: Vital Signs Temperature 97.0 F L 12/15/24 17:04 Pulse Rate 68 12/15/24 19:43 Respiratory Rate 19 H 12/15/24 19:43 Blood Pressure 156/78 12/15/24 19:43 Pulse Oximetry 96 12/15/24 19:43 Oxygen Delivery Me thod Room Air 12/15/24 18:55 MDM - Fall Lab Data Radiology Impressions Cervical Spine CT 12/15/24 17:08 IMPRESSION: No acute findings. Chest X-Ray 12/15/24 17:08 IMPRESSION: No acute findings. Chest/Abdomen/Pelvis CT 12/15/24 17:08 IMPRESSION: No acute traumatic intrathoracic findings. IMPRESSION: No acute traumatic intra-abdominal findings. Head CT 12/15/24 17:08 IMPRESSION: No acute intracranial abnormality. Discharge Plan Discharge Patient Disposition: Home Clinical Impression: Contusion of head, Chest wall contusion Condition: Stable Prescriptions: New hydrocodone-acetaminophen 5-325 mg tablet 1 tab PO Q8H PRN (Reason: pain) Qty: 7 0RF No Action multivitamin Tablet 1 tab PO DAILY aspirin 81 mg Tablet,Chewable 81 mg PO DAILY celecoxib 100 mg capsule 100 mg PO BID Qty: 20 0RF baclofen 5 mg tablet 5 mg PO TID PRN (Reason: muscle spasm) Qty: 20 0RF Discharge Orders: Discharge ED (Routine); Ordered 12/15/24 Ordered By: Aldo Rueda Referrals: [facility],. [Family Provider] - Sandy Milan PA [Primary Care Provider] - 1-3 days Patient Instructions: Chest Contusion (ED), Opioid Safety, Pain Management Activity Restrictions/Additional Instructions: Take your blood pressure twice daily for the next few days. Report numbers to your doctor. Pain medication for significant pain. You may take Tylenol otherwise. Return for any problems such as vomiting, mental status changes, dizziness, etc. Print Language: Puerto [place]ican Coding Level of Care Code ED Motorboat Operator for Chg Fwd Documented by User: Aldo Rueda, 12/16/24 04:31 HPI - Fall General: Chief Complaint: Fall Stated Complaint: head pain s/p fall Time Seen by Provider: 12/15/24 17:05 Related Data Home Medications ?Medication ?Instructions ?Recorded ?Confirmed aspirin 81 mg chewable tablet 81 mg PO DAILY 03/30/20 03/30/20 multivitamin 1 tab PO DAILY 03/30/20 03/30/20 Previous Rx's ?Medication ?Instructions ?Recorded baclofen 5 mg tablet 5 mg PO TID PRN muscle spasm #20 05/05/24 tabs celecoxib 100 mg capsule 100 mg PO BID #20 caps 05/05/24 hydrocodone 5 mg-acetaminophen 325 1 tab PO Q8H PRN pain #7 tabs 12/15/24 mg tablet Allergies Allergy/AdvReac Type Severity Reaction Status Date / Time No Known Allergies Allergy Verified 03/30/20 06:54 Course Vital Signs: Vital signs: Vital Signs Temperature 97.0 F L 12/15/24 17:04 Pulse Rate 68 12/15/24 19:43 Respiratory Rate 19 H 12/15/24 19:43 Blood Pressure 156/78 12/15/24 19:43 Pulse Oximetry 96 12/15/24 19:43 Oxygen Delivery Me thod Room Air 12/15/24 18:55 MDM - Fall Medical Decision Making 79-year-old female checked out at shift change. She is complaining mainly of rib/chest wall pain. CTs of the head, cervical spine, chest abdomen pelvis showed no acute traumatic findings. Her blood pressure has been high. She is given morphine Zofran and metoprolol for pain and hypertension. Blood pressure is beginning to come down. C-collar is removed. She will be allowed discharge. Lab Data Radiology Impressions Cervical Spine CT 12/15/24 17:08 IMPRESSION: No acute findings. Chest X-Ray 12/15/24 17:08 IMPRESSION: No acute findings. Chest/Abdomen/Pelvis CT 12/15/24 17:08 IMPRESSION: No acute traumatic intrathoracic findings. IMPRESSION: No acute traumatic intra-abdominal findings. Head CT 12/15/24 17:08 IMPRESSION: No acute intracranial abnormality. All radiology interpretation(s) finalized by discharge Discharge Plan Discharge Patient Disposition: Home Clinical Impression: Contusion of head, Chest wall contusion Condition: Stable Prescriptions: New hydrocodone-acetaminophen 5-325 mg tablet 1 tab PO Q8H PRN (Reason: pain) Qty: 7 0RF No Action multivitamin Tablet 1 tab PO DAILY aspirin 81 mg Tablet,Chewable 81 mg PO DAILY celecoxib 100 mg capsule 100 mg PO BID Qty: 20 0RF baclofen 5 mg tablet 5 mg PO TID PRN (Reason: muscle spasm) Qty: 20 0RF Discharge Orders: Discharge ED (Routine); Ordered 12/15/24 Ordered By: Aldo Rueda Referrals: [facility],. [Family Provider] - Sandy Milan PA [Primary Care Provider] - 1-3 days Patient Instructions: Chest Contusion (ED), Opioid Safety, Pain Management Activity Restrictions/Additional Instructions: Take your blood pressure twice daily for the next few days. Report numbers to your doctor. Pain medication for significant pain. You may take Tylenol otherwise. Return for any problems such as vomiting, mental status changes, dizziness, etc. Print Language: [place]ican Coding Level of Care Code ED Motorboat Operator for Kirsten Fabian
[2024-12-15] MEDS: ondansetron 2 mg/ML SDV 2 mL 4 MG IVP (18:01)
[2024-12-15] MEDS: metoprolol tartrate 1 mg/1 mL SDV 5 mL 5 MG IVP (18:10)
[2024-12-15] MEDS: morphine 4 mg/mL SDV 1 mL IVP (18:54)
== END 2024-12-15 19:35 | disposition home or self-care (01) ==
PROVIDERS: Emergency Provider Emergency Medicine; PCP Physician Assistant
DX: S00.93XA Contusion of unspecified part of head, initial encounter (principal); S20.219A Contusion of unspecified front wall of thorax, initial encounter; Z79.82 Long term (current) use of aspirin; W10.9XXA Fall (on) (from) unspecified stairs and steps, initial encounter
CPT/HCPCS: 70450; 71045; 71260; 72125; 74177; 96374; 96375; 99285; J2270; J2405; J3490